=== PATIENT | male | born 1985 | race African-American/Black ===

== ENCOUNTER 2019-05-18 08:13 | Emergency (ER) | payer MEDICAID ==
[~2019-05-18] VITALS: Ht 175.3 cm; Wt 69.0 kg
[2019-05-18 09:00] VITALS: BP 116/75
== END 2019-05-18 09:25 | disposition home or self-care (01) ==
LOC: ER 08:29
DX: F19.90 Other psychoactive substance use, unspecified, uncomplicated (principal); F55.8 Abuse of other non-psychoactive substances; I10 Essential (primary) hypertension; F32.9 Major depressive disorder, single episode, unspecified; Z88.8 Allergy status to other drugs, medicaments and biological substances
CPT/HCPCS: 99281